=== PATIENT | female | born 1990 | race Caucasian/White ===

== ENCOUNTER 2019-07-21 17:12 | Emergency (ER) | payer OTHER ==
[~2019-07-21] VITALS: Ht 172.7 cm; Wt 77.1 kg
[~2019-07-21 17:12] MED LIST: CORTISPORIN OTI10 M2 OTIC; KEFLEX500 MG PO
[2019-07-21] MEDS ORDERED: ADVIL MIGRAINE200 M1 PO (17:20)
[2019-07-21 17:45] LABS: ABSOLUTE BASOPHILS 0.1 thou/uL (0.0-0.2); ABSOLUTE EOSINOPHILS 0.2 thou/uL (0.0-0.7); ABSOLUTE LYMPHOCYTES 2.5 thou/uL (0.8-5.3); ABSOLUTE MONOCYTES 0.7 thou/uL (0.0-1.2); BASOPHILS 0.7 %; EOSINOPHILS 2.9 %; HEMATOCRIT 35.3 % (37.0-47.0); HEMOGLOBIN 12.1 gm/dL (12.0-15.0); LYMPHOCYTES 29.3 %; MCH 27.9 pg (26.0-34.0); MCHC 34.3 g/dL (28.0-37.0); MCV 81.1 fL (80.0-100.0); MPV 10.1 fl. (7.2-11.1); NUCLEATED RBCS 0 /100WBC; PLATELET COUNT* 209 thou/uL (150-400); POLYS 59.1 %; RBC 4.35 mil/uL (4.20-5.00); RDW-CV 13.6 % (10.5-14.5); WBC 8.5 thou/uL (4.0-11.0)
[2019-07-21 17:52] LABS: URINE BILIRUBIN NEGATIVE (Negative); URINE BLOOD NEGATIVE (Negative); URINE CLARITY CLEAR; URINE COLOR YELLOW; URINE GLUCOSE-RANDOM NEGATIVE (Negative); URINE KETONES NEGATIVE (Negative); URINE LEUKOCYTES-REFLEX NEGATIVE (Negative); URINE NITRITE-REFLEX NEGATIVE (Negative); URINE PROTEIN NEGATIVE (Negative); URINE UROBILINOGEN 0.2 E.U./dl (0.2-1.0)
[2019-07-21 17:53] LABS: CALCIUM 9.2 mg/dL (8.5-10.1); CREATININE 0.9 mg/dL (0.6-1.3); POTASSIUM 3.2 mmol/L (3.5-5.1)
[2019-07-21 18:04] LABS: ALBUMIN 4.1 g/dL (3.4-5.0); TOTAL BILIRUBIN 0.2 mg/dL (<0.1-1.0); TOTAL PROTEIN 7.4 g/dL (6.4-8.2)
[2019-07-21] MEDS ORDERED: MECLIZINE HCL25 M1 PO (19:30)
[2019-07-21 19:53] VITALS: BP 110/70
--- NOTE | 2019-07-23 11:30 | EKG ---
[place] [address] ELECTROCARDIOGRAM REPORT Name: LOLI ALEXANDER Room: [facility]#: [id number] Admission: 07/21/19 Attend Phys: Discharge: 07/21/19 Date of : 88 Report #: [id number] THIS REPORT FOR: //name// [facility] ED Test Date: 2019-07-21 Test Time: 18:07:52 Pat Name: LOLIOMAR ALEXANDER Department: Room: Gender: F Ham Boner: CCD : 1990 Requested By: Migdalia Monte Order Number: [id number] MD: Ketan Alston Measurements Intervals [place] Rate: 68 P: 63 VT: 129 QRS: 38 QRSD: 91 T: 15 QT: 395 QTc: 421 Interpretive Statements Sinus rhythm No previous ECG available for comparison Electronically Signed On 07-23-2019 11:30:16 [employer]RE [employer]MENT BATTALION CHIEF by Ketan Alston [email or web address] <ELECTRONICALLY SIGNED> By: Ketan Alston MD, [facility] 07/23/19 1130 1807 1807 Ketan Alston MD, FACC /EPI
== END 2019-07-21 19:53 | disposition home or self-care (01) ==
LOC: M.ERS 17:12
PROVIDERS: Nurse Practitioner Family
DX: R42 Dizziness and giddiness (principal); R06.00 Dyspnea, unspecified; F17.210 Nicotine dependence, cigarettes, uncomplicated; Z98.890 Other specified postprocedural states